=== PATIENT | female | born 1950 | race Caucasian/White ===

== ENCOUNTER 2017-01-24 10:46 | Emergency (ER) | payer SELFPAY ==
[~2017-01-24] VITALS: Ht 152.4 cm; Wt 68.5 kg
[~2017-01-24 10:46] MED LIST: LEVO88TA2 PO; SYNT88TA PO
[2017-01-24 10:49] VITALS: BP 138/101; PULSE 92; RESP 16; TEMP 98.1; O2SAT 97
[2017-01-24] MEDS ORDERED: LISI2.5T3 PO (11:09)
[2017-01-24] MEDS ORDERED: BP MED (11:09)
[2017-01-24] MEDS ORDERED: NOVALOG (11:09)
[2017-01-24] MEDS ORDERED: LANTUS2P SQ (11:09)
[2017-01-24] MEDS ORDERED: LEVO75TA3 PO (11:09)
[2017-01-24] MEDS ORDERED: METF1000 PO (11:09)
[2017-01-24] MEDS ORDERED: PROPARACAINE HCL 0.5% OPHT SOLN 15 ML BTL EACH EYE ONE (11:30)
--- NOTE | 2017-01-24 11:40 | PD ---
HPI Chief Complaint: Eye Problems/Injury Time Seen by Provider: 11:25 Travel History International Travel<30 days: No Contact w/Intl Traveler<30days: No Traveled to known affect area: No History of Present Illness HPI 66 YO F presents to the ED for evaluation of ~2 hour history of stinging pain in both eyes, right greater than left. Onset after the patient was helping to secure a pencil cactus to a tree. The patient denies blurred vision, photophobia , headache. She treated at home by flushing the eye with water and applying a cold washcloth before presentation. PFSH Past Medical History COPD: Yes Diabetes: Yes Patient Takes Glucophage: Yes Diminished Hearing: No Hypertension: Yes Immunizations Current: No Thyroid Disease: Yes (hypothyroid) Menopausal: Yes Past Surgical History Appendectomy: Yes Gynecologic Surgery: Yes (rt ovary removed,rt fallopian tube removed.) Tonsillectomy: Yes Social History Alcohol Use: No Tobacco Use: No Substance Use: No Allergies-Medications (Allergen,Severity, Reaction): Coded Allergies: codeine (Unverified Allergy, Severe, 01/24/17) aspirin (Unverified Adverse Reaction, Severe, nausea, 01/24/17) Reported Meds & Prescriptions Reported Meds & Active Scripts Active Tramadol (Tramadol HCl) 50 Mg Tab 100 Mg PO Q6H PRN Bacitracin Opth Oint 500 Unit/Gm Oint 1 Applic RIGHT EYE BID 5 Days Reported [Bp Med] [Novalog] Lantus Inj (Insulin Glargine) 100 Unit/Ml Inj 10 Units SQ HS Levothyroxine (Levothyroxine Sodium) 75 Mcg Tab Unknown Dose PO DAILY Lisinopril 2.5 Mg Tab Unknown Dose PO DAILY Metformin (Metformin HCl) 1,000 Mg Tab Unknown Dose PO BIDPC With meals Review of Systems Except as stated in HPI: all other systems reviewed are Neg Physical Exam Narrative GENERAL: Well-nourished, well-developed patient. SKIN: Focused skin assessment warm/dry. HEAD: Normocephalic. EYES: No scleral icterus. Both eyes are mildly injected with mildly increased tearing. FUNDUSCOPIC EXAM: The bilateral funduscopic exam appeared within normal limits without papilledema, A-V nicking or blood associated with the optic disc. No corneal abrasions visualized under fluorescein and Wood's light exam. PH approximately 7.0 by litmus test bilaterally. NECK: Supple, trachea midline. No JVD or lymphadenopathy. CARDIOVASCULAR: Regular rate and rhythm without murmurs, gallops, or rubs. RESPIRATORY: Breath sounds equal bilaterally. No accessory muscle use. GASTROINTESTINAL: Abdomen soft, non-tender, nondistended. MUSCULOSKELETAL: No cyanosis, or edema. BACK: Nontender without obvious deformity. No CVA tenderness. Data Data Last Documented VS Vital Signs Date Time Temp Pulse Resp B/P (MAP) Pulse Ox O2 Delivery O2 Flow Rate FiO2 01/24/17 10:49 98.1 92 16 138/101 (113) 97 Orders Orders Proparacaine 0.5% Opth Soln (Alcaine 0.5 (01/24/17 11:30) MDM Medical Decision Making Medical Screen Exam Complete: Yes Emergency Medical Condition: Yes Differential Diagnosis Chemical exposure of the eye versus caustic substance in the eye versus corneal abrasion versus other Narrative Course 66 YO F presents to the ED for evaluation of ~2 hour history of stinging pain in both eyes, right greater than left. Onset after the patient was helping to secure a pencil cactus to a tree. The patient denies blurred vision, photophobia , headache. Vitals reviewed. Both eyes are mildly injected with mildly increased tearing, right much greater than left. The bilateral funduscopic exam appeared within normal limits without papilledema, A-V nicking or blood associated with the optic disc. No corneal abrasions visualized under fluorescein and Wood's light exam. PH approximately 7.0 by litmus test bilaterally. Drop of proparacaine was instilled into the right eye. After this the patient states that she is asymptomatic in the left eye. A Yousif lens was applied to the eye and 500 mL's of saline was used to flush the surface. Litmus test reveals pH of 8 in the right eye after this procedure. I spoke with Dr. Awan who recommends prescribing bacitracin ointment and oral pain medications. She will see the patient in the office tomorrow morning. I discussed this plan with the patient and provided Dr. Awan's contact information. The patient is agreeable. She is stable and discharged home. Diagnosis Primary Impression: Pain in right eye Additional Impression: Chemical exposure of eye Referrals: Neema Awan MD Patient Instructions: Chemical Eye [facility]oley (ED), General Instructions Additional Instructions: Rest, hydrate. Apply bacitracin ointment twice a day as prescribed. Nothing else in the eye. Takes tramadol as needed for pain, as prescribed. Do not drive while taking tramadol. Call Dr. Awan's office tomorrow morning for an appointment tomorrow afternoon. Return to the ED for worsening symptoms or any urgent or emergent medical condition. Med/Other Pt SpecificInfo: Prescription(s) given Scripts Tramadol (Tramadol) 50 Mg Tab 100 MG PO Q6H Y for PAIN, #12 TAB 0 Refills Prov: Becca Pathak MD 01/24/17 Bacitracin Opth Oint (Bacitracin Opth Oint) 500 Unit/Gm Oint 1 APPLIC RIGHT EYE BID for Infection for 5 Days, #1 TUBE 0 Refills Prov: Becca Pathak MD 01/24/17 Disposition: 01 DISCHARGE HOME Condition: Stable Jackie Cotto Jan 24, 2017 11:40
[2017-01-24] MEDS ORDERED: TRAM50TA PO (12:05)
[2017-01-24] MEDS ORDERED: BACIOIN6 RIGHT EYE (12:05)
== END 2017-01-24 12:17 | disposition home or self-care (01) ==
LOC: PHEFT 10:46
DX: H57.11 Ocular pain, right eye (principal); E11.9 Type 2 diabetes mellitus without complications; Z77.098 Contact with and (suspected) exposure to other hazardous, chiefly nonmedicinal, chemicals; Z79.84 Long term (current) use of oral hypoglycemic drugs
CPT/HCPCS: 99284

== ENCOUNTER 2017-02-17 16:15 | Emergency (ER) | payer SELFPAY ==
[~2017-02-17] VITALS: Ht 152.4 cm; Wt 67.0 kg
[~2017-02-17 16:15] MED LIST changes: +BACIOIN6 RIGHT EYE; +BP MED; +LANTUS2P SQ; +LEVO75TA3 PO; -LEVO88TA2 PO; +LISI2.5T3 PO; +METF1000 PO; +NOVALOG; -SYNT88TA PO; +TRAM50TA PO
[2017-02-17 16:26] VITALS: BP 107/58; PULSE 71; RESP 16; TEMP 98.6; O2SAT 98
--- NOTE | 2017-02-17 17:33 | PD ---
HPI Chief Complaint: fall Time Seen by Provider: 17:20 Travel History International Travel<30 days: No Contact w/Intl Traveler<30days: No Traveled to known affect area: No History of Present Illness HPI This is a 66-year-old female who presents for evaluation after mechanical fall. She reports a prior to arrival she was in a store when she slipped in some water and fell, landing on her right side. There is no loss of consciousness. She is complaining of pain to the lateral right hip. The pain is an aching pain that is worse with movement. She reports that she fell on her right arm as well but denies any pain or range of motion limitation the right arm. She has been able to ambulate with some pain. She has no other complaints at this time. PFSH Past Medical History COPD: Yes Diabetes: Yes Diminished Hearing: No Hypertension: Yes Immunizations Current: No Thyroid Disease: Yes (hypothyroid) Menopausal: Yes Past Surgical History Appendectomy: Yes Gynecologic Surgery: Yes (rt ovary removed,rt fallopian tube removed.) Tonsillectomy: Yes Social History Alcohol Use: No Tobacco Use: No Substance Use: No Allergies-Medications (Allergen,Severity, Reaction): Coded Allergies: codeine (Unverified Allergy, Severe, 01/24/17) aspirin (Unverified Adverse Reaction, Severe, nausea, 01/24/17) Reported Meds & Prescriptions Reported Meds & Active Scripts Active Tramadol (Tramadol HCl) 50 Mg Tab 100 Mg PO Q6H PRN Bacitracin Opth Oint 500 Unit/Gm Oint 1 Applic RIGHT EYE BID 5 Days Reported [Bp Med] [Novalog] Lantus Inj (Insulin Glargine) 100 Unit/Ml Inj 10 Units SQ HS Levothyroxine (Levothyroxine Sodium) 75 Mcg Tab Unknown Dose PO DAILY Lisinopril 2.5 Mg Tab Unknown Dose PO DAILY Metformin (Metformin HCl) 1,000 Mg Tab Unknown Dose PO BIDPC With meals Review of Systems Musculoskeletal: Positive: Pain, No: Limited ROM Skin: Positive Other (denies laceration) Neurologic: No: Paresthesia Physical Exam Narrative GENERAL: Well-nourished female in no acute distress SKIN: Warm and dry. Superficial abrasion noted to the right forearm. HEAD: Atraumatic. Normocephalic. EYES: Pupils equal and round. No scleral icterus. No injection or drainage. ENT: No nasal bleeding or discharge. Mucous membranes pink and moist. NECK: Trachea midline. No JVD. CARDIOVASCULAR: Regular rate and rhythm. No murmur appreciated. RESPIRATORY: No accessory muscle use. Clear to auscultation. Breath sounds equal bilaterally. GASTROINTESTINAL: Abdomen soft, non-tender, nondistended. Hepatic and splenic margins not palpable. MUSCULOSKELETAL: No obvious deformities. Tender to palpation lateral right hip. The patient maintains full range of motion of the lower extremities. She has some pain with right hip flexion against resistance. No tenderness to palpation along the thoracic or lumbar midline spine. Full range of motion of the right upper extremity with no discomfort. NEUROLOGICAL: Awake and alert. No obvious cranial nerve deficits. Motor grossly within normal limits. Normal speech. Data Data Last Documented VS Vital Signs Date Time Temp Pulse Resp B/P (MAP) Pulse Ox O2 Delivery O2 Flow Rate FiO2 02/17/17 16:26 98.6 71 16 107/58 (74) 98 Room Air Orders Orders Hip, Uni(Ap&Lat) W Ap Pelvis (02/17/17 ) MDM Medical Decision Making Medical Screen Exam Complete: Yes Emergency Medical Condition: Yes Medical Record Reviewed: Yes Differential Diagnosis Contusion, trochanteric bursitis, fracture, hematoma, compartment syndrome, muscle strain, muscle tear Narrative Course 66-year-old female presents after mechanical fall with lateral right hip pain. She has been ambulatory. X-ray imaging of the pelvis/right hip reveal no acute abnormality is. The patient declines pain medication. X-ray imaging reveals no acute abnormality. The patient appears to have a contusion to her right leg. She is stable for discharge. Diagnosis Primary Impression: Contusion of right leg Qualified Codes: S80.11XA - Contusion of right lower leg, initial encounter Additional Instructions: Ice pack several times a day 20 minutes at a time of the affected area. Avoid strenuous activity. Take Tylenol or Motrin for pain per dosing instructions on the bottle. Follow-up with primary care physician and return for any emergent medical conditions. Med/Other Pt SpecificInfo: No Change to Meds Disposition: 01 DISCHARGE HOME Condition: Stable Jono Donohue Feb 17, 2017 17:33
--- NOTE | 2017-02-17 18:03 | RADRPT ---
EXAM DATE/TIME: 02/17/2017 17:35 [facility] COMPARISON: No previous studies available for comparison. INDICATIONS : Pain due to fall. MEDICAL HISTORY : Hypertension. Diabetes mellitus type II. Hypothyroidism. Chronic obstructive pulmonary disease. SURGICAL HISTORY : Right ovaries removed. ENCOUNTER: Initial ACUITY: 1 day PAIN SCORE: 8/10 LOCATION: Right hip, lateral and posterior. FINDINGS: Examination of the right hip was performed with AP Pelvis. The primary and secondary trabecular oliva terese of the femoral neck is intact. The hip joint is of normal width without significant sclerosis or bony hypertrophy. The acetabulum is grossly intact. CONCLUSION: 1. No acute fracture or dislocation. Alan Gil MD on February 17, 2017 at 18:00 Board Certified Radiologist. This report was verified electronically.
[2017-02-17] MEDS ORDERED: AMLO2.5T PO (18:33)
[2017-02-17] MEDS ORDERED: LEVO88TA2 PO (18:33)
[2017-02-17] MEDS ORDERED: LISI-515 PO (18:33)
[2017-02-17] MEDS ORDERED: METF500T PO (18:33)
[2017-02-17] MEDS ORDERED: NOVOLOGP2 SQ (18:33)
== END 2017-02-17 18:40 | disposition home or self-care (01) ==
LOC: PHED 16:15 → PHEFT 18:40
DX: S70.11XA Contusion of right thigh, initial encounter (principal); S50.811A Abrasion of right forearm, initial encounter; E11.9 Type 2 diabetes mellitus without complications; I10 Essential (primary) hypertension; E03.9 Hypothyroidism, unspecified; Z79.4 Long term (current) use of insulin; Z87.09 Personal history of other diseases of the respiratory system; W01.0XXA Fall on same level from slipping, tripping and stumbling without subsequent striking against object, initial encounter; Y92.512 Supermarket, store or market as the place of occurrence of the external cause
CPT/HCPCS: 73502; 99283